=== PATIENT | male | born 1940 | race Caucasian/White ===

== ENCOUNTER 2017-08-07 07:29 | Day surgery (SDC) | payer MEDICARE ==
[~2017-08-07] VITALS: Ht 185.4 cm; Wt 69.0 kg
[~2017-08-07 07:29] MED LIST: AMLO5 PO; ASPI81CH PO; ATOR80 PO; CLOP75 PO; FISH1000 PO; Hair, Skin & N1 EACH PO; LISI5 PO; METO25ER PO; MULVITMIND PO; NITR.4SL PO; OMEP20ER PO; PANT40 PO
[2018-06-11] MEDS ORDERED: Hair, Skin & N1 EACH PO (15:55)
[2018-06-11] MEDS ORDERED: TURMERIC1 GM PO (15:56)
== END 2017-08-07 11:40 | disposition home or self-care (01) ==
LOC: ORSCMMR 07:29
PROVIDERS: Surgery
PROC: 0YUA0JZ Supplement Bilateral Inguinal Region with Synthetic Substitute, Open Approach (ICD-10-PCS; principal; 2017-08-07 09:00)
DX: K40.20 Bilateral inguinal hernia, without obstruction or gangrene, not specified as recurrent (principal); I10 Essential (primary) hypertension; I25.10 Atherosclerotic heart disease of native coronary artery without angina pectoris; I25.2 Old myocardial infarction; Z79.82 Long term (current) use of aspirin; Z79.899 Other long term (current) drug therapy
CPT/HCPCS: C1781; J0690; J1100; J2405; J3010; J7120

== ENCOUNTER 2018-06-16 07:54 | Day surgery (SDC) | payer MEDICARE ==
[~2018-06-16] VITALS: Ht 185.4 cm; Wt 67.6 kg
[~2018-06-16 07:54] MED LIST changes: +TURMERIC1 GM PO
== END 2018-06-16 12:02 | disposition home or self-care (01) ==
LOC: ORSCMMR 07:54 → ORD 09:30 → ORSCMMR 12:02
PROVIDERS: Surgery
PROC: 0YU60JZ Supplement Left Inguinal Region with Synthetic Substitute, Open Approach (ICD-10-PCS; principal; 2018-06-16 09:30)
DX: K40.91 Unilateral inguinal hernia, without obstruction or gangrene, recurrent (principal); I10 Essential (primary) hypertension; I25.10 Atherosclerotic heart disease of native coronary artery without angina pectoris; I25.2 Old myocardial infarction; Z79.899 Other long term (current) drug therapy
CPT/HCPCS: C1781; J0690; J2250; J2370; J2405; J3010; J7120

== ENCOUNTER 2018-11-30 07:42 | Day surgery (SDC) | payer MEDICARE ==
[~2018-11-30] VITALS: Ht 185.4 cm; Wt 65.8 kg
== END 2018-11-30 09:55 | disposition home or self-care (01) ==
LOC: ORSCSDS 07:42
PROVIDERS: Internal Medicine Gastroenterology
PROC: 0DBM8ZX Excision of Descending Colon, Via Natural or Artificial Opening Endoscopic, Diagnostic (ICD-10-PCS; principal; 2018-11-30 09:00)
PROC: 0DBK8ZX Excision of Ascending Colon, Via Natural or Artificial Opening Endoscopic, Diagnostic (ICD-10-PCS; principal; 2018-11-30 09:00)
DX: Z12.11 Encounter for screening for malignant neoplasm of colon (principal); D12.2 Benign neoplasm of ascending colon; D12.4 Benign neoplasm of descending colon; Z86.010 Personal history of colon polyps; K57.30 Diverticulosis of large intestine without perforation or abscess without bleeding; K64.8 Other hemorrhoids; Z83.71 Family history of colonic polyps; I25.10 Atherosclerotic heart disease of native coronary artery without angina pectoris; Z79.899 Other long term (current) drug therapy
CPT/HCPCS: 88305; J2405; J2704; J7120

== ENCOUNTER 2019-07-09 08:21 | Day surgery (SDC) | payer MEDICARE ==
[~2019-07-09] VITALS: Ht 185.4 cm; Wt 67.7 kg
--- NOTE | 2019-07-09 11:07 | NUR ---
Ambulatory in Day Surgery. Surgical site prepped with 2% Chlorhexidine cloth wipe. History, Chart, Medications and Allergies reviewed before start of procedure.Lungs clear T/O to Auscultation. Patient confirms NPO status and agrees with scheduled surgery. Pre-Op teaching done. Pt verbalizes understanding. Patient States Post-Procedure ride home has been arranged. Patient reports completing Chlorhexadine shower X2 prior to admission to hospital.
--- NOTE | 2019-07-09 14:20 | NUR ---
Patient up to Ambulate independently. Gait steady. Discharge instructions reviewed with patient. Patient verbalizes understanding. Copy given to patient to take home. Patient States Post-Procedure ride home has been arranged. Discharged via wheelchair to private car for ride home.
== END 2019-07-09 14:41 | disposition home or self-care (01) ==
LOC: ORSCMMR 08:21 → ORD 10:00 → ORSCMMR 14:41
PROVIDERS: Surgery
PROC: 8E0W4CZ Robotic Assisted Procedure of Trunk Region, Percutaneous Endoscopic Approach (ICD-10-PCS; principal; 2019-07-09 10:00)
PROC: 0YU64JZ Supplement Left Inguinal Region with Synthetic Substitute, Percutaneous Endoscopic Approach (ICD-10-PCS; principal; 2019-07-09 10:00)
DX: K40.91 Unilateral inguinal hernia, without obstruction or gangrene, recurrent (principal); I10 Essential (primary) hypertension; I25.2 Old myocardial infarction; Z79.82 Long term (current) use of aspirin; Z79.899 Other long term (current) drug therapy
CPT/HCPCS: 49651; S2900; A9270-GY; C1781; J0690; J1100; J2250; J2405; J2704; J3010; J7120

== ENCOUNTER → 2021-11-22 | Outpatient (CLI) | payer MEDICARE | END | disposition home or self-care (01) | LOC: LAB SHORT 11:19 → LAB 11:19 | DX: L82.1 Other seborrheic keratosis (principal) | CPT/HCPCS: 88305 ==

== ENCOUNTER → 2022-03-05 | Outpatient (CLI) | payer MEDICARE | END | disposition home or self-care (01) | LOC: LAB SHORT 11:07 | DX: C44.42 Squamous cell carcinoma of skin of scalp and neck (principal) | CPT/HCPCS: 88305 ==

== ENCOUNTER → 2022-04-01 | Outpatient (CLI) | payer MEDICARE | END | disposition home or self-care (01) | LOC: LAB SHORT 14:43 → PLD 14:43 | DX: L57.0 Actinic keratosis (principal); C44.42 Squamous cell carcinoma of skin of scalp and neck | CPT/HCPCS: 88305 ==

== ENCOUNTER → 2023-08-05 | Outpatient (CLI) | payer MEDICARE | END | disposition home or self-care (01) | LOC: LAB 13:10 → LAB SHORT 13:10 | DX: C44.712 Basal cell carcinoma of skin of right lower limb, including hip (principal) | CPT/HCPCS: 88305 ==

== ENCOUNTER → 2023-08-20 | Outpatient (CLI) | payer MEDICARE | LOC: LAB SHORT 14:28 → LAB 14:28 | DX: C44.712 Basal cell carcinoma of skin of right lower limb, including hip (principal) | CPT/HCPCS: 88305 ==

== ENCOUNTER 2023-12-29 09:43 | Day surgery (SDC) | payer MEDICARE ==
[~2023-12-29] VITALS: Ht 182.9 cm; Wt 64.2 kg
[~2023-12-29 09:43] MED LIST changes: +Lactated Ringer's 1,000 ML IV ONE; +propofoL 50 ML IV ONE
[2023-12-29] MEDS ORDERED: Lactated Ringer's 1,000 ML IV ONE (11:08)
[2023-12-29] MEDS ORDERED: FentaNYL Citrate 50 MCG/ML 2 ML Injection ONE (12:16)
[2023-12-29 12:47] VITALS: BP 104/73
== END 2023-12-29 12:55 | disposition home or self-care (01) ==
LOC: ORSCSDS 09:43
PROVIDERS: Internal Medicine Gastroenterology
PROC: 0DJD8ZZ Inspection of Lower Intestinal Tract, Via Natural or Artificial Opening Endoscopic (ICD-10-PCS; principal; 2023-12-29 11:00)
DX: Z12.11 Encounter for screening for malignant neoplasm of colon (principal); Z86.010 Personal history of colon polyps; I25.10 Atherosclerotic heart disease of native coronary artery without angina pectoris; I21.9 Acute myocardial infarction, unspecified; Z79.82 Long term (current) use of aspirin; Z79.899 Other long term (current) drug therapy
CPT/HCPCS: J2704; J3010; J7120

== ENCOUNTER 2024-12-28 10:56 | Day surgery (SDC) | payer MEDICARE ==
[~2024-12-28] VITALS: Ht 185.4 cm; Wt 67.6 kg
[~2024-12-28 10:56] MED LIST changes: +Balanced Salt Epinephrine Irrigation Solution 500 mL IR SCH; -Lactated Ringer's 1,000 ML IV ONE; +Moxifloxacin HCL 0.5 MG/0.1 ML 0.4MLSYR LEFTEYE SCH; +Ondansetron 4 MG SoluTab MM PRN; +PHENYLEPHRINE\\TROPICAMIDE\\TETRACAINE OPHTHALMIC DILATING SOLN LEFTEYE PRN; +Povidone-Iodine 450 DROP/30 ML Solution LEFTEYE SCH; +Povidone-Iodine 450 DROP/30 ML Solution ONE; +Tetracaine HCl/Pf 0.5% Opth Soln 4 ml ONE; +diazePAM 5 MG,diazePAM 2 MG PO SCH; -propofoL 50 ML IV ONE
--- NOTE | 2024-12-28 11:17 | NUR ---
12/28/24 Rosalie Bonilla INITIAL ANXIETY 07/09 PER PATIENT
[2024-12-28] MEDS ORDERED: EYE VITAMIN (11:28)
--- NOTE | 2024-12-28 12:08 | NUR ---
12/28/24 1208 Solomon Pineda BP 118/67, HR 61, O2 100% W/BLOWBY AT 10L.
[2024-12-28 12:17] VITALS: BP 123/77
== END 2024-12-28 12:32 | disposition home or self-care (01) ==
LOC: ORSCSDS 10:56
PROVIDERS: Student in an Organized Health Care Education/Training Program
PROC: 08RK3JZ Replacement of Left Lens with Synthetic Substitute, Percutaneous Approach (ICD-10-PCS; principal; 2024-12-28 12:30)
DX: H25.812 Combined forms of age-related cataract, left eye (principal); Z96.1 Presence of intraocular lens; H44.20 Degenerative myopia, unspecified eye; H43.813 Vitreous degeneration, bilateral; H35.363 Drusen (degenerative) of macula, bilateral; Z79.82 Long term (current) use of aspirin
CPT/HCPCS: A9270; J2003; V2632